=== PATIENT | female | born 1930 | race Caucasian/White ===

== ENCOUNTER 2017-09-22 07:00 | Inpatient (IN) | payer OTHER, MEDICAID ==
[~2017-09-22] VITALS: Ht 149.9 cm; Wt 54.4 kg
[2017-09-22] VITALS (7 sets, daily range): BP systolic 135–154; BP diastolic 43–67
--- NOTE | 2017-09-22 07:00 | NUR ---
PT. MERCER TO ER BED 1
[2017-09-22] MEDS ORDERED: NACL 0.9% 1,000 ML IV SCH (07:08)
--- NOTE | 2017-09-22 07:37 | NUR ---
PT TAKEN TO CT VIA [facility] ACCOMPANIED BY DINING SERVER.
--- NOTE | 2017-09-22 07:45 | NUR ---
PT RETURNED FROM CT VIA RNEY ACCOMPANIED BY [employer].
--- NOTE | 2017-09-22 07:46 | NUR ---
XRAY AT BEDSIDE.
--- NOTE | 2017-09-22 07:48 | NUR ---
87F BIBA FROM HOME C/O ALTERED LEVEL OF CONSCIOUSNESS X 2 DAYS; PT STATES WAS IN BATHROOM X 2 DAYS S/P SLIP AND FALL, BUT STATES NO LOC AT TIME OF INCIDENT; PT AWAKE, ALERT AND ORIENTED X 2 AT THIS TIME, PERRL; PT CONFUSED, BUT CALM AND ABLE TO FOLLOW COMMANDS WITH CLEAR SPEECH AT THIS TIME; BL LUNG SOUNDS CLEAR, RR EVEN/UNLABORED, PT STATES NO N/V/D AT THIS TIME; PT NOTED WITH COLOSTOMY BAG; ABDOMEN SOFT, NON-TENDER, ACTIVE BOWEL SOUNDS X 4 QUADRANTS; PT NOTED WITH SMALL, "SLIT" OPEN WOUND TO COCCYX; NO BLEEDING NOTED TO SITE AT THIS TIME; PT STATES NO PAIN OR DISCOMFORT AT THIS TIME; PT PLACED ON MONITOR, RESTING IN BED WITH HOB ELEVATED AND IN LOWEST POSITION; POSITIONED FOR COMFORT; ER MD MADE AWARE OF STATUS. WILL CONTINUE TO MONITOR.
[2017-09-22 07:51] LABS: BASOPHILS % (AUTO) 0.5 % (0.0-2.0); EOSINOPHILS % (AUTO) 0.1 % (0.0-4.0); HEMOGLOBIN 9.7 g/dL (12.0-16.0); LYMPHOCYTES # (AUTO) 0.5 K/uL (2.5-16.5); LYMPHOCYTES % (AUTO) 5.4 % (20.5-51.1); MEAN CORPUSCULAR HEMOGLOBIN 30 pg (27-31); MEAN CORPUSCULAR HGB CONC 32 g/dL (33-37); MEAN CORPUSCULAR VOLUME 92 fL (80-94); MONOCYTES # (AUTO) 0.4 K/uL (0.8-1.0); NEUTROPHILS # (AUTO) 7.9 K/uL (1.8-7.7); PLATELET COUNT (AUTO) 209 K/uL (140-450); RED BLOOD CELL COUNT(AUTO) 3.26 MIL/uL (4.20-5.40); RED CELL DISTRIBUTION WIDTH 13.2 % (11.6-13.7)
[2017-09-22 08:01] LABS: WHITE BLOOD COUNT (AUTO) 8.8 K/uL (4.8-10.8)
[2017-09-22 08:08] LABS: ANION GAP 13.9 (8-16); CARBON DIOXIDE 25.7 mmol/L (21-32); CHLORIDE 107 mmol/L (98-107); CREATININE 1.1 mg/dL (0.6-1.3); GLUCOSE 130 mg/dL (74-106); POTASSIUM 4.6 mmol/L (3.5-5.1); SODIUM SERUM 142 mmol/L (136-145); UREA NITROGEN, BLOOD 33 mg/dL (7-18)
[2017-09-22 08:13] LABS: ALBUMIN 3.6 g/dL (3.4-5.0); ASPARTATE AMINOTRANSFERASE 19 U/L (15-37); TOTAL BILIRUBIN 0.4 mg/dL (0.0-1.0)
[2017-09-22 08:23] LABS: CKMB RELATIVE INDEX 0.7 (0.0-2.5); CREATINE KINASE MB 1.5 ng/mL (0-3.6)
[2017-09-22 08:28] LABS: PROTHROMBIN TIME 9.8 secs (10.8-13.4)
[2017-09-22] MEDS ORDERED: cefTRIAXone 1,000 MG VIAL ONE (09:02)
--- NOTE | 2017-09-22 09:11 | NUR ---
ER MD DR. QUINTERO EVALUATING PT AT BEDSIDE.
[2017-09-22 09:34] LABS: APPEARANCE,URINE HAZY (CLEAR); BILIRUBIN,URINE NEGATIVE (NEGATIVE); BLOOD, URINE TRACE-L (NEGATIVE); COLOR,URINE YELLOW (YELLOW); LEUKOCYTE ESTERASE ,URINE TRACE (NEGATIVE); NITRITE, URINE NEGATIVE (NEGATIVE); UGLUCOSE NEGATIVE (NEGATIVE)
[2017-09-22] MEDS ORDERED: ONDANSETRON 4 MG/2 ML VIAL IVP PRN (09:40)
[2017-09-22] MEDS ORDERED: PANTOPRAZOLE 40 MG TABEC PO ONE (09:40)
[2017-09-22] MEDS ORDERED: HYDROcodone/APAP 7.5/325 MG 1 TAB PO PRN (09:40)
[2017-09-22] MEDS ORDERED: ACETAMINOPHEN 325 MG TAB PO PRN (09:40)
[2017-09-22 09:46] LABS: RBC,URINE 0-5 (RARE) /HPF (0-5)
[2017-09-22] MEDS ORDERED: MECLIZINE 25 MG TAB PO PRN (09:50)
--- NOTE | 2017-09-22 09:55 | NUR ---
FAMILY AT BEDSIDE. FAMILY INFORMED PT HAS M/S IN ADDITION TO HTN; FAMILY STATES PT WAS NOT IN BATHROOM FOR TWO DAYS, FAMILY LIVES WITH PT IN SAME COMPLEX AND CHECKED ON PT LAST NIGHT; PT AWAKE, ALERT, POSITIONED FOR COMFORT; NO COMPLAINTS OF PAIN AT THIS TIME. WILL CONTINUE TO MONITOR. Addendum: 09/22/17 at 1031 by [employer] FAMILY STATES PT HAS COLOSTOMY D/T COLON CANCER.
--- NOTE | 2017-09-22 10:06 | NUR ---
CALLED REPORT TO SAURABH ADAM; KIA ON 15 MINUTE BREAK AND WILL BE BACK SHORTLY; WILL CALL BACK TO GET REPORT.
[2017-09-22] MEDS ORDERED: ATORVASTATIN 20 MG TAB PO SCH (10:08)
[2017-09-22] MEDS ORDERED: ASPIRIN 81 MG TAB.CHEW PO SCH (10:08)
--- NOTE | 2017-09-22 10:15 | NUR ---
REPORT GIVEN TO SAURABH ADAM.
--- NOTE | 2017-09-22 10:34 | NUR ---
Patient will be admitted to care of DR. CM. Admited to TELEMETRY. Will go to room 108A. Belongings list completed. Report to SAURABH ADAM.
--- NOTE | 2017-09-22 10:36 | NUR ---
DR. LEVIN TO PUT IN A DIET ORDER AFTER SWALLOW EVAL PER
--- NOTE | 2017-09-22 10:43 | NUR ---
RECEIVED PT FROM ER. ASSISTED BY MASSAGE THERAPY INSTRUCTOR ON [facility]. AWAKE. ALERT ORIENTEDX2. NO SOB NOTED. DENIES ANY PAIN OR DISCOMFORT AT THIS TIME. PT AMBULATORY WITH ASSIST. COLOSTOMY BAG INTACT AND IN PLACE ON PT'S LEFT LOWER ABDOMEN. SAFETY PRECAUTION IN PLACE. CALL LIGHT WITHIN REACH.
[2017-09-22] MEDS: NACL 0.9% 1,000 ML IV SCH (10:52)
[2017-09-22 10:55] LABS: CHOL/HDL RATIO 5.4 (1-4.5); FREE T4 (FREE THYROXINE) 0.94 ng/dL (0.76-1.46); MAGNESIUM 2.1 mg/dL (1.8-2.4); PHOSPHORUS 3.3 mg/dL (2.5-4.9); THYROID STIMULATING HORMONE 1.75 uIU/mL (0.34-3.74)
--- NOTE | 2017-09-22 11:30 | NUR ---
PT COOPERATIVE. AMBULATES WITH ASSIST. FRIEND THALIA AT BEDSIDE.
[2017-09-22] MEDS ORDERED: BENAZEPRIL 20 MG TAB PO SCH (11:56)
[2017-09-22] MEDS ORDERED: PANTOPRAZOLE 40 MG TABEC PO SCH (11:58)
[2017-09-22] MEDS ORDERED: MULTIVITAMIN 1 TAB PO SCH (11:59)
[2017-09-22] MEDS ORDERED: CALCIUM CARB/VIT-D 500 MG/200 IU 1 TAB PO SCH (12:00)
[2017-09-22] MEDS ORDERED: TOLTERODINE LA 4 MG CAPER PO SCH (12:01)
--- NOTE | 2017-09-22 14:41 | NUR ---
SISTER CORA CAME TO SEE PT AND BROUGHT PT'S HOME MEDS. MEDS SENT TO PHARMACY FOR SAFEKEEPING.
[2017-09-22] MEDS: TOLTERODINE LA 4 MG CAPER PO SCH (14:51)
[2017-09-22] MEDS ORDERED: LACTOBACILLUS RHAMNOSUS GG 1 EACH CAP PO SCH (15:00)
--- NOTE | 2017-09-22 19:01 | NUR ---
PT KEPT CLEAN, DRY AND COMFORTABLE, NEEDS ATTENDED, WILL ENDORSED TO NEXT SHIFT. PT ON STABLE CONDITION. FOR CONTINUITY OF CARE.
--- NOTE | 2017-09-22 19:20 | NUR ---
RECEIVED REPORT FROM DAY SHIFT NURSE. PT SITTING IN BED, EATING. AOX2, FOLLOWS COMMAND. IV TO RIGHT HAND, NS AT 50 ML/HR. DISCUSSED PLAN OF CARE, PT VERBALIZED UNDERSTANDING. SAFETY PRECAUTION IN PLACE. WILL CONTINUE TO MONITOR.
--- NOTE | 2017-09-22 21:30 | NUR ---
TRIED TO CALL PT'S SISTER, CORA ([phone]) TO SIGN PT'S ADMITING PAPERS. NO ANSWER. LEFT VOICE MSG.
[2017-09-22] MEDS: DOCUSATE SODIUM 100 MG GELCAP PO SCH (21:50)
[2017-09-22] MEDS ORDERED: HYDRAGUARD CREAM TP SCH (23:00)
--- NOTE | 2017-09-22 23:50 | NUR ---
PT C/O PAIN ON THE IV SITE. D/C IV CANNULA. TIP INTACT.
[2017-09-23] VITALS: BP 112/62
--- NOTE | 2017-09-23 00:02 | NUR ---
INSERTED IV LINE TO RIGHT WRIST #22G. GOOD FLUSH AND BLOOD RETURN. PROCEDURE TOLERATED WELL.
--- NOTE | 2017-09-23 00:30 | NUR ---
ASSISTED PT TO BEDSIDE COMMODE.
--- NOTE | 2017-09-23 02:37 | NUR ---
PT SLEEPING. NO S/S OF DISTRESS NOTED. CALL LIGHT WITHIN REACH.
[2017-09-23 04:00] VITALS: BP 115/64
--- NOTE | 2017-09-23 05:11 | NUR ---
PT AWAKE, LYING IN BED COMFORTABLY. NO C/O PAIN OR DISCOMFORT. CALL LIGHT WITHIN REACH. .
[2017-09-23] MEDS: NACL 0.9% 1,000 ML IV SCH ×3 (05:38→23:08)
[2017-09-23 06:58] LABS: BASOPHILS % (AUTO) 0.3 % (0.0-2.0); EOSINOPHILS # (AUTO) 0.1 K/uL (0-0.4); EOSINOPHILS % (AUTO) 1.2 % (0.0-4.0); HEMATOCRIT 25.8 % (36-48); HEMOGLOBIN 8.5 g/dL (12.0-16.0); LYMPHOCYTES # (AUTO) 1.2 K/uL (2.5-16.5); LYMPHOCYTES % (AUTO) 16.1 % (20.5-51.1); MEAN CORPUSCULAR HEMOGLOBIN 30 pg (27-31); MEAN CORPUSCULAR HGB CONC 33 g/dL (33-37); MEAN CORPUSCULAR VOLUME 92 fL (80-94); MONOCYTES # (AUTO) 0.5 K/uL (0.8-1.0); MONOCYTES % (AUTO) 6.3 % (1.7-9.3); NEUTROPHILS # (AUTO) 5.4 K/uL (1.8-7.7); NEUTROPHILS % (AUTO) 76.1 % (42.2-75.2); PLATELET COUNT (AUTO) 170 K/uL (140-450); RED BLOOD CELL COUNT(AUTO) 2.79 MIL/uL (4.20-5.40); RED CELL DISTRIBUTION WIDTH 13.1 % (11.6-13.7); WHITE BLOOD COUNT (AUTO) 7.2 K/uL (4.8-10.8)
--- NOTE | 2017-09-23 07:12 | NUR ---
ENDORSED PT TO DAY SHIFT NURSE. PT IN STABLE CONDITION.
[2017-09-23 07:19] LABS: PHOSPHORUS 3.7 mg/dL (2.5-4.9)
--- NOTE | 2017-09-23 07:20 | NUR ---
RECEIVED REPORT FROM SPOT MACHINE OPERATOR NURSE, PT IS RESTING IN BED, A/OX2, AMBULATES WITH ASSIST, PT HAS IV ON THE RIGHT WRIST, PATENT, INTACT, FLUSHING WELL, PATIENT HAS SMALL SKIN TEAR ON HER SACRAL AREA,NO S/S OF RESPIRATORY DISTRESS OR DISCOMFORT NOTED, DISCUSSED PLAN OF CARE WITH PT, PT VERBALIZED UNDERSTANDING, SAFETY/FALL PRECAUTIONS ARE IN PLACE, CALL LIGHT IS WITHIN REACH, WILL CONTINUE TO MONITOR.
[2017-09-23 07:22] LABS: ANION GAP 13.7 (8-16); CARBON DIOXIDE 23.7 mmol/L (21-32); CHLORIDE 109 mmol/L (98-107); CREATININE 1.1 mg/dL (0.6-1.3); GLUCOSE 104 mg/dL (74-106); POTASSIUM 4.4 mmol/L (3.5-5.1); SODIUM SERUM 142 mmol/L (136-145); UREA NITROGEN, BLOOD 28 mg/dL (7-18)
[2017-09-23 08:00] VITALS: BP 139/71
[2017-09-23] MEDS: FERROUS SULFATE 325 MG TABEC PO SCH (08:24)
[2017-09-23] MEDS: CALCIUM CARB/VIT-D 500 MG/200 IU 1 TAB PO SCH (08:25)
[2017-09-23] MEDS: MULTIVITAMIN 1 TAB PO SCH (08:25)
[2017-09-23] MEDS: DOCUSATE SODIUM 100 MG GELCAP PO SCH ×2 (08:26→20:03)
[2017-09-23] MEDS: ATORVASTATIN 20 MG TAB PO SCH (08:26)
[2017-09-23] MEDS: LACTOBACILLUS RHAMNOSUS GG 1 EACH CAP PO SCH (08:26)
[2017-09-23] MEDS: BENAZEPRIL 20 MG TAB PO SCH (08:27)
[2017-09-23] MEDS: TOLTERODINE LA 4 MG CAPER PO SCH (08:28)
[2017-09-23] MEDS: FLUTICASONE NASAL 50 MCG/ACTUATION 16 GM BTL NS SCH (08:29)
--- NOTE | 2017-09-23 09:02 | NUR ---
FNS REFERRAL RECEIVED FOR 'NOT APPLICABLE' ON 09/22/17. REFERRAL REASON DOES NOT MEET HIGH NUTRITION RISK CRITERIA. PATIENT HAS BEEN SCREENED AND CATEGORIZED, PER NUTRITION CARE POLICY, MODERATE NUTRITION RISK. PATIENT WILL BE SEEN WITHIN 3-5 DAYS OF ADMISSION. 09/25/17-09/27/[address] Addendum: 09/23/17 at [address] DATE CORRECTION: 09/24/17 - 09/26/[address]
--- NOTE | 2017-09-23 10:37 | NUR ---
PT SLEEPING IN BED, CALL LIGHT IS WITHIN REACH.
[2017-09-23 12:00] VITALS: BP 110/50
--- NOTE | 2017-09-23 12:45 | NUR ---
ASSISTED PT TO BEDSIDE COMMODE AND BACK INTO BED, ALL NEEDS MET AT THIS TIME, CALL LIGHT WITHIN REACH.
[2017-09-23] MEDS ORDERED: SODIUM CHLORIDE FLUSH 10 ML SYR IVF SCH (13:00)
--- NOTE | 2017-09-23 13:59 | NUR ---
Clinical review faxed to [facility] at [phone]
--- NOTE | 2017-09-23 15:39 | NUR ---
PT RESTING IN BED, ASSISTED PT TO BEDSIDE COMMODE AND BACK INTO BED. ALL NEEDS MET, CALL LIGHT WITHIN REACH.
[2017-09-23 16:00] VITALS: BP 107/64
--- NOTE | 2017-09-23 16:05 | NUR ---
PT RESTING IN BED, WATCHING TV, CALL LIGHT WITHIN REACH.
--- NOTE | 2017-09-23 19:10 | NUR ---
ENDORSED PT TO SHALE MINER BLASTING NURSE FOR CONTINUITY OF CARE, PT STABLE AT THIS TIME.
--- NOTE | 2017-09-23 19:12 | NUR ---
PATIENT REPORT RECEIVED AT BEDSIDE FROM MORNING NURSE. PATIENT IS AWAKE ALERT AND ORIENTED. NO SIGNS AND SYMPTOMS OF DISTRESS NOTED NO COMPLAINTS OF PAIN AT THIS TIME. IV SITE NOTED ON RIGHT WRIST. IVF INFUSING WELL. COLOSTOMY BAG NOTED ON LEFT LOWER ABDOMEN. SCD IN PLACE. BED IN LOWEST POSITION, SIDE RAILS UP AND CALL LIGHT WITHIN REACH. WILL CONTINUE TO MONITOR.
[2017-09-23 20:00] VITALS: BP 108/52
--- NOTE | 2017-09-23 23:43 | NUR ---
ASSISTED PATIENT TO BEDSIDE COMMODE. PATIENT VOIDED. PERICARE DONE. ASSISTED PATIENT BACK TO BED. NO SIGNS AND SYMPTOMS OF DISTRESS NOTED. BED IN LOWEST POSITION, SIDE RAILS UP AND CALL LIGHT WITHIN REACH. WILL CONTINUE TO MONITOR.
[2017-09-24] VITALS: BP 140/59
[2017-09-24 04:00] VITALS: BP 114/54
[2017-09-24 06:35] LABS: BASOPHILS # (AUTO) 0.1 K/uL (0.00-0.22); BASOPHILS % (AUTO) 1.2 % (0.0-2.0); EOSINOPHILS # (AUTO) 0.1 K/uL (0-0.4); EOSINOPHILS % (AUTO) 2.3 % (0.0-4.0); HEMATOCRIT 25.2 % (36-48); HEMOGLOBIN 8.3 g/dL (12.0-16.0); LYMPHOCYTES # (AUTO) 1.4 K/uL (2.5-16.5); LYMPHOCYTES % (AUTO) 21.7 % (20.5-51.1); MEAN CORPUSCULAR HEMOGLOBIN 31 pg (27-31); MEAN CORPUSCULAR HGB CONC 33 g/dL (33-37); MEAN CORPUSCULAR VOLUME 93 fL (80-94); MONOCYTES # (AUTO) 0.6 K/uL (0.8-1.0); MONOCYTES % (AUTO) 8.9 % (1.7-9.3); NEUTROPHILS % (AUTO) 65.9 % (42.2-75.2); PLATELET COUNT (AUTO) 156 K/uL (140-450); RED BLOOD CELL COUNT(AUTO) 2.72 MIL/uL (4.20-5.40); RED CELL DISTRIBUTION WIDTH 13.3 % (11.6-13.7); WHITE BLOOD COUNT (AUTO) 6.2 K/uL (4.8-10.8)
[2017-09-24 06:55] LABS: ANION GAP 9.5 (8-16); CARBON DIOXIDE 26.5 mmol/L (21-32); CHLORIDE 113 mmol/L (98-107); GLUCOSE 96 mg/dL (74-106); SODIUM SERUM 145 mmol/L (136-145); UREA NITROGEN, BLOOD 27 mg/dL (7-18)
--- NOTE | 2017-09-24 07:30 | NUR ---
PATIENT REPORT GIVEN TO MORNING NURSE. PATIENT IS IN STABLE CONDITION
--- NOTE | 2017-09-24 07:31 | NUR ---
REPORT RECEIVED FROM FELT CUTTER, PT AWAKE ALERT, RESP EVEN UNLABORED ON ROOM AIR, SKIN WARM DRY COLOR WNL, INITIAL ASSESSMENT DONE, PT DENIES PAIN OR DISCOMFORT, PLAN OF CARE DISCUSSED, PT VERBALIZED FULL UNDERSTANDING, PT VOICES NO IMMEDIATE NEEDS, SAFETY MEASURES IN PLACE, CALL FELTON WITHIN REACH, SIDE RAILS UP X2, BED LOCKED IN LOW POSITION, WILL CONTINUE TO MONITOR.
[2017-09-24 08:00] VITALS: BP 147/67
[2017-09-24] MEDS: FLUTICASONE NASAL 50 MCG/ACTUATION 16 GM BTL NS SCH (08:23)
[2017-09-24] MEDS: MULTIVITAMIN 1 TAB PO SCH (08:23)
[2017-09-24] MEDS: TOLTERODINE LA 4 MG CAPER PO SCH (08:23)
[2017-09-24] MEDS: BENAZEPRIL 20 MG TAB PO SCH (08:24)
[2017-09-24] MEDS: LACTOBACILLUS RHAMNOSUS GG 1 EACH CAP PO SCH (08:24)
[2017-09-24] MEDS: ATORVASTATIN 20 MG TAB PO SCH (08:24)
[2017-09-24] MEDS: CALCIUM CARB/VIT-D 500 MG/200 IU 1 TAB PO SCH (08:24)
[2017-09-24] MEDS: FERROUS SULFATE 325 MG TABEC PO SCH (08:24)
[2017-09-24] MEDS: DOCUSATE SODIUM 100 MG GELCAP PO SCH ×2 (08:25→21:19)
--- NOTE | 2017-09-24 08:39 | NUR ---
DUE MEDS GIVEN, PT DELORES WELL, PT ASSISTED TO BEDSIDE COMMODE, VOIDED WITHOUT PROBLEM.
--- NOTE | 2017-09-24 11:17 | NUR ---
RON NOTE ANGELITO [place]/ MAXIMILIANO FROM [facility] ([phone]) RE. HOME HEALTH AUTH.
[2017-09-24 12:00] VITALS: BP 130/60
--- NOTE | 2017-09-24 12:01 | NUR ---
LEFT WRIST IV SITE PUFFY AND INFILTRATED, IV DC'D, CATH TIP INTACT, BLEEDING CONTROLLED, PT DELORES WELL, NEW IV STARTED TO LEFT AC 22G, PT DELORES WELL, IVF RESUMED, PT SITTING UP NOW TO EAT LUNCH, WILL CONTINUE TO MONITOR.
[2017-09-24] MEDS: NACL 0.9% 1,000 ML IV SCH ×2 (13:26→23:39)
--- NOTE | 2017-09-24 13:48 | NUR ---
PT SITTING UP TALKING WITH MALE VISITOR AT BEDSIDE, SMILING CONVERSING PLEASANTLY, DENIES PAIN OR DISCOMFORT, DENIES ANY IMMEDIATE NEEDS, TELE MONITOR REMOVED, PT NOW MED SURGE STATUS. CALL FELTON WITHIN REACH, SIDE RAILS UP, BED LOCKED IN LOW POSITION, WILL CONTINUE TO MONITOR
--- NOTE | 2017-09-24 15:37 | NUR ---
CM NOTE CONCURRENT REVIEW FAXED TO [facility] / FAX# [phone], ATTN: MAXIMILIANO #[phone]
[2017-09-24 16:00] VITALS: BP 139/68
--- NOTE | 2017-09-24 17:30 | NUR ---
DR LEVIN AT BEDSIDE, PT RESTING QUIETLY IN NAD, RESP EVEN UNLBORED, + COUGHS OCCASIONALLY, WILL TEACH IS PER ORDER.
--- NOTE | 2017-09-24 19:25 | NUR ---
REPORT GIVEN TO TRAIN CONTROL ELECTRONIC TECHNICIAN NURSE, PT IN STABLE CONDITION.
--- NOTE | 2017-09-24 19:26 | NUR ---
RECEIVED PT FROM MARIKA RN PT IS AAOX4 WITH MILD WEAKNESS USING BSC TO VOID PT HAS A COLOSTOMY BAG EMPTY
[2017-09-24 20:00] VITALS: BP 147/68
--- NOTE | 2017-09-24 22:00 | NUR ---
PT IS ASSISTED TO USED BSC VOIDING WELL COLOSTOMY BAG EMPTY DENIES ANY PAIN
[2017-09-25] VITALS: BP 132/71
--- NOTE | 2017-09-25 01:00 | NUR ---
PT HAS BEEN ;;MONITORING CLOSED NOT DISTRESS NOTED
--- NOTE | 2017-09-25 04:00 | NUR ---
SPONGE BATH GIVEN , LILNEN CHANGED NOT DISTRESS NOTED
--- NOTE | 2017-09-25 05:52 | NUR ---
PT HAS BEEN ASSISTED TO USED BSC VOIDING WELL COLOSTOMY BAG EMPTY
[2017-09-25 06:54] LABS: BASOPHILS % (AUTO) 0.6 % (0.0-2.0); EOSINOPHILS # (AUTO) 0.2 K/uL (0-0.4); EOSINOPHILS % (AUTO) 2.8 % (0.0-4.0); HEMATOCRIT 25.3 % (36-48); HEMOGLOBIN 8.4 g/dL (12.0-16.0); LYMPHOCYTES # (AUTO) 1.3 K/uL (2.5-16.5); LYMPHOCYTES % (AUTO) 23.9 % (20.5-51.1); MEAN CORPUSCULAR HEMOGLOBIN 31 pg (27-31); MEAN CORPUSCULAR HGB CONC 33 g/dL (33-37); MEAN CORPUSCULAR VOLUME 93 fL (80-94); MONOCYTES # (AUTO) 0.4 K/uL (0.8-1.0); NEUTROPHILS # (AUTO) 3.7 K/uL (1.8-7.7); NEUTROPHILS % (AUTO) 65.7 % (42.2-75.2); PLATELET COUNT (AUTO) 178 K/uL (140-450); RED BLOOD CELL COUNT(AUTO) 2.73 MIL/uL (4.20-5.40); RED CELL DISTRIBUTION WIDTH 12.9 % (11.6-13.7); WHITE BLOOD COUNT (AUTO) 5.6 K/uL (4.8-10.8)
--- NOTE | 2017-09-25 06:54 | NUR ---
PT REMAIN STABLE DENIES ANY PAIN NOT DISTRESS NOTED
--- NOTE | 2017-09-25 07:00 | NUR ---
ENDORSEMENT RECEIVED FROM AUTOMOTIVE PROJECT ENGINEER NURSE. PATIENT IS STABLE. RESPIRATION EVEN, UNLABOR. SKIN DRY AND WARM TO THE TOUCH. CALL LIGHT WITHIN REACH. WILL CONTINUE TO MONITOR
[2017-09-25 07:01] LABS: CARBON DIOXIDE 24.3 mmol/L (21-32); CHLORIDE 111 mmol/L (98-107); GLUCOSE 92 mg/dL (74-106); POTASSIUM 4.3 mmol/L (3.5-5.1); SODIUM SERUM 146 mmol/L (136-145); UREA NITROGEN, BLOOD 23 mg/dL (7-18)
[2017-09-25 08:00] VITALS: BP 149/54
--- NOTE | 2017-09-25 08:00 | NUR ---
PATIENT AWAKE, ALERT. PUPILS EQUAL REACTIVE TO LIGHT. LUNGS SOUND CLEAR THROUGHOUT. CARDIAC WITH S1,S2 PRESENT. BOWELS SOUND ACTIVE 4 QUADRANTS. SKIN DRY AND WARM TO THE TOUCH. IV 22G LEFT AC WITH NS @ 100ML/HR, PATENT AND INTACT. DENIED PAIN AT THIS TIME. CALL LIGHT WITHIN REACH. WILL CONTINUE TO MONITOR
[2017-09-25] MEDS: LACTOBACILLUS RHAMNOSUS GG 1 EACH CAP PO SCH (08:16)
[2017-09-25] MEDS: MULTIVITAMIN 1 TAB PO SCH (08:16)
[2017-09-25] MEDS: ATORVASTATIN 20 MG TAB PO SCH (08:17)
[2017-09-25] MEDS: FERROUS SULFATE 325 MG TABEC PO SCH (08:17)
[2017-09-25] MEDS: CALCIUM CARB/VIT-D 500 MG/200 IU 1 TAB PO SCH (08:17)
[2017-09-25] MEDS: DOCUSATE SODIUM 100 MG GELCAP PO SCH (08:17)
[2017-09-25] MEDS: BENAZEPRIL 20 MG TAB PO SCH (08:17)
[2017-09-25] MEDS: FLUTICASONE NASAL 50 MCG/ACTUATION 16 GM BTL NS SCH (08:19)
[2017-09-25] MEDS ORDERED: BENA20TA5 PO (08:47)
[2017-09-25] MEDS ORDERED: CALC-846 PO (08:47)
[2017-09-25] MEDS ORDERED: LACT10CA PO (08:47)
[2017-09-25] MEDS ORDERED: DETLA4 PO (08:47)
[2017-09-25] MEDS ORDERED: DOCU-299 PO (08:47)
[2017-09-25] MEDS ORDERED: ATOR20TA40 PO (08:47)
[2017-09-25] MEDS ORDERED: FLONAS NS (08:47)
[2017-09-25] MEDS ORDERED: SULF-58 PO (08:47)
[2017-09-25] MEDS ORDERED: FERR-18 PO (08:47)
[2017-09-25] MEDS ORDERED: NITR100C7 PO (09:00)
[2017-09-25] MEDS: TOLTERODINE LA 4 MG CAPER PO SCH (09:43)
--- NOTE | 2017-09-25 10:00 | NUR ---
PATIENT IS AWAKE, ALERT, SITTING ON THE BED. NO DISTRESS NOTED. RESPIRATION EVEN, UNLABOR. DENIED PAIN AT THIS TIME. CALL LIGHT WITHIN REACH. WILL CONTINUE TO MONITOR
--- NOTE | 2017-09-25 10:14 | NUR ---
CM NOTE CONCURRENT REVIEW FAXED TO [facility] / FAX# [phone], ATTN: MAXIMILIANO #[phone]
--- NOTE | 2017-09-25 10:30 | NUR ---
CM NOTE PATIENT TO BE SET UP W/ HOME HEALTH BY INSURANCE. RE-FAXED ORDER TO MAXIMILIANO FROM [facility].
[2017-09-25] MEDS ORDERED: INFLUENZA VIRUS VACCINE QUAD 0.5 ML SYR IMVAC SCH (11:25)
[2017-09-25] MEDS ORDERED: PNEUMOCOCCAL VACCINE 23 MCG/0.5 ML VIAL IMVAC SCH (11:25)
--- NOTE | 2017-09-25 11:45 | NUR ---
DISCHARGE INSTRUCTION WAS GIVEN AT BEDSIDE. PATIENT VERBALIZED UNDERSTANDING. IV WAS REMOVED WITH CATHETER TIP INTACT. PICTURE WAS TAKEN ON THE SACRAL SKIN TEAR AREA. PATIENT IS STABLE AT THIS TIME. NO DISTRESS NOTED. CALL LIGHT WITHIN REACH. WILL CONTINUE TO MONITOR
--- NOTE | 2017-09-25 12:55 | NUR ---
SISTER CORA HERE TO TAKE PT HOME, DISCHARGE INSTRUCTION REVIEWED WITH SISTER, SISTER VERBALIZED UNDERSTANDING, PT WALKING AROUND WITH SLOW STEADY GAIT, ESCORTED TO FRONT LOBBY IN WHEEL CHAIR, [place] HOME WITH HOME HEALTH.
== END 2017-09-25 12:55 | disposition home health service (06) | DRG 73 ==
LOC: MED 07:00 → MTU 09:44
PROVIDERS: ADMIT Family Medicine; ATTEND Family Medicine
DX: G90.9 Disorder of the autonomic nervous system, unspecified (principal); N17.0 Acute kidney failure with tubular necrosis; G93.41 Metabolic encephalopathy; E87.0 Hyperosmolality and hypernatremia; N39.0 Urinary tract infection, site not specified; G45.9 Transient cerebral ischemic attack, unspecified; I10 Essential (primary) hypertension; N32.81 Overactive bladder; M81.0 Age-related osteoporosis without current pathological fracture; G35 Multiple sclerosis; I25.10 Atherosclerotic heart disease of native coronary artery without angina pectoris; D50.9 Iron deficiency anemia, unspecified; E78.5 Hyperlipidemia, unspecified; R82.4 Acetonuria; I07.1 Rheumatic tricuspid insufficiency; I27.20 Pulmonary hypertension, unspecified; R26.2 Difficulty in walking, not elsewhere classified; Z66 Do not resuscitate; E87.8 Other disorders of electrolyte and fluid balance, not elsewhere classified; Z79.899 Other long term (current) drug therapy; Z93.3 Colostomy status; Z90.49 Acquired absence of other specified parts of digestive tract; Z88.0 Allergy status to penicillin; Z82.3 Family history of stroke; Z83.3 Family history of diabetes mellitus; Z82.49 Family history of ischemic heart disease and other diseases of the circulatory system; Z84.89 Family history of other specified conditions; Z91.81 History of falling; Z85.038 Personal history of other malignant neoplasm of large intestine; F03.90 Unspecified dementia, unspecified severity, without behavioral disturbance, psychotic disturbance, mood disturbance, and anxiety
CPT/HCPCS: 36415; 70450; 71010; 80048; 80053; 81001; 82140; 82150; 82550; 82553; 83036; 83605; 83690; 83735; 83874; 83880; 84100; 84439; 84443; 84484; 85025; 85610; 85730; 87040; 87081; 87086; 93005; 93880; J0696; J7030; J7060; Q0092